=== PATIENT | female | born 1985 | race Caucasian/White ===

== ENCOUNTER 2017-03-03 14:15 | Inpatient (IN) | payer MEDICAID ==
[~2017-03-03] VITALS: Ht 160 cm; Wt 90.5 kg
[2017-03-03] MEDS ORDERED: URSO300C3 PO (14:47)
[2017-03-03] MEDS ORDERED: PRENAT PO (14:47)
[2017-03-03 14:48] VITALS: Ht 160 cm; Wt 90.5 kg
[2017-03-03 14:49] VITALS: BP 142/76; PULSE 59
[2017-03-03 15:29] LABS: ADD SCAN DIFF NO
[2017-03-03 15:32] LABS: BASOPHILS % 0.3 % (0.0-2.0); EOSINOPHILS % 0.5 % (0.0-7.0); HEMATOCRIT 33.6 % (37.0-47.0); HEMOGLOBIN 11.3 g/dl (12.0-16.0); LYMPHOCYTES # 1.9 10^3/ul (0.8-2.9); LYMPHOCYTES % 29.6 % (15.0-51.0); MEAN CORPUSCULAR HEMOGLOBIN 28.7 pg (29.0-33.0); MEAN CORPUSCULAR HGB CONC 33.6 g/dl (32.0-37.0); MEAN CORPUSCULAR VOLUME 85.3 fl (82.0-101.0); MEAN PLATELET VOLUME 12.6 fl (7.4-10.4); MONOCYTE # 0.4 10^3/ul (0.3-0.9); MONOCYTES % 6.6 % (0.0-11.0); NEUTROPHIL # 4.1 10^3/ul (1.6-7.5); NEUTROPHILS % 62.5 % (39.0-77.0); PLATELET COUNT 188 10^3/UL (140-415); RED BLOOD COUNT 3.94 10^6/ul (4.20-5.40); RED CELL DISTRIBUTION WIDTH 13.2 % (11.5-14.5); WHITE BLOOD COUNT 6.5 10^3/ul (4.8-10.8)
--- NOTE | 2017-03-03 15:39 | RADRPT ---
PROCEDURE: US OB biophysical profile. CLINICAL INDICATION: evaluation TECHNIQUE: Multiple sonographic images of the pelvis were obtained. The images were reviewed on a PACS workstation. COMPARISON: No prior studies are available for comparison. FINDINGS: There is a single viable intrauterine gestation. Cardiac activity is present with 154 beats per min hernandez. There is a vertex presentation. The placenta is anterior. There is no evidence of placental abruption. There is a normal amount of amniotic fluid with an JOHN = 15.4 cm. Biophysical profile: movement 2/2 tone 2/2. breathing 2/2 JOHN 2/2 Total 06/30 RPTAT: AA . IMPRESSION: Normal biophysical profile. Normal JOHN. Physician Corry Date Time Electronically viewed and signed by Physician Corry on 03/03/2017 15:39 RA/
[2017-03-03 15:41] LABS: INR 0.9; PROTIME 12.1 Sec (12.2-14.2); PT RATIO 0.9
[2017-03-03 15:42] LABS: PARTIAL THROMBOPLASTIN TIME 25.2 Sec (25.0-35.0)
[2017-03-03 15:43] LABS: ADD UMIC YES; URINE BILIRUBIN (Dip) NEGATIVE (NEGATIVE); URINE BLOOD (Dip) NEGATIVE (NEGATIVE); URINE COLOR LT. YELLOW (YELLOW); URINE GLUCOSE (Dip) NEGATIVE (NEGATIVE); URINE KETONES (Dip) NEGATIVE (NEGATIVE); URINE LEUKOCYTE ESTERASE (Dip) 2+ (NEGATIVE); URINE NITRITE (Dip) NEGATIVE (NEGATIVE); URINE TOTAL PROTEIN (Dip) NEGATIVE (NEGATIVE); URINE UROBILINOGEN (Dip) 0.2 E.U./dL (0.1-1.0)
[2017-03-03 15:43] LABS: ALBUMIN 3.1 g/dl (3.3-4.9); ALBUMIN/GLOBULIN RATIO 0.86; BILIRUBIN,INDIRECT 0.4 mg/dl (0-1.1); BILIRUBIN,TOTAL 0.4 mg/dl (0.2-1.3); CALCIUM 8.9 mg/dl (8.4-10.2); CREATININE 0.82 mg/dl (0.44-1.00); POTASSIUM 3.8 mmol/L (3.5-5.1); TOTAL PROTEIN 6.7 g/dl (6.1-8.1); URIC ACID 7.6 mg/dl (3.1-7.9)
[2017-03-03 16:16] LABS: SQUAMOUS EPITHELIAL CELL,UR MODERATE; URINE RBCS 0-2 /HPF (0)
[2017-03-03 16:17] LABS: BACTERIA,URINE RARE
--- NOTE | 2017-03-03 17:52 | HP ---
Date/Time of Note Date/Time of Note DATE: 03/03/17 TIME: 17:36 OB - History Hx of Present Free Text/Dictation March 03, 2017 OB triage consult and history and physical for admission This patient is a 31 years old 2 para 1 with EDC of April 11, 2017 which makes her 34 weeks and 3 days. She was sent to the triage area due to elevated blood pressure as well as Cholestasis of as well as gestational diabetes mellitus diet- controlled . This patient had the pruritus and evidences of a cholestasis of she was placed on Actigall 300 mg 3 times a day last week and she is currently taking her Ursodiol 300 mg 3 times daily but she did not take it since yesterday . On reviewing her vital sign her blood pressure was 142/76 an hour later was 138/ 87 Pulse rate 59 respiration 18 and temperature 98.3 This patient also had gestational diabetes diet-controlled as well as slightly elevated blood pressure. On physical examination she is a well-developed well-nourished lady who is complaining of itching of the abdomen . On physical exam her ear nose throat appear to be normal neck is normal no neck vein distention no thyromegaly no lymph node enlargement anywhere her body Her chest is clear to auscultation her precaution no rales. Heart normal sinus rhythm no murmur. Breasts are soft free of masses. Abdomen is soft she has occasional contractions. Baby appears to be in vertex presentation heart tone is normal at this time as I mentioned with fairly good variability no acceleration. Knee-jerk reflex is normal Pelvic exam at this time was not performed On her lab studies her liver enzyme was slightly elevated, her urinalysis showed 2+ leukocyte esterase with WBC of 5-10. She had some degree of anemia hemoglobin 11.3 hematocrit 33.6 platelet count [id number].. Her PT PTT and INR were normal fibrinogen obviously somewhat elevated 647 mg/dL . On ultrasound study today the report is a single viable intrauterine gestation with 155 bpm heart rate vertex presentation placenta anterior no evidence of placental abruption JOHN 84 this 15.4 cm biophysical profile of 06/30 Due to cholestasis of , gestational diabetes, elevated blood pressure her case was discussed with Dr. Michael who agreed to admit her in the hospital and review her other test tomorrow Abnormal Ultrasound Findings: Laboratory Tests Test 03/03/17 14:50 03/03/17 15:00 Urine Color LT. YELLOW Urine Clarity CLEAR Urine pH 5.5 Urine Specific [place]mit[place] 1.010 Urine Ketones NEGATIVE Urine Nitrite NEGATIVE Urine Bilirubin NEGATIVE Urine Urobilinogen 0.2 E.U./dL Urine Leukocyte Esterase 2+ Urine Microscopic RBC 0-2/HPF Urine WBC Clumps OCCASIONAL Urine Microscopic WBC 5-10/HPF Urine Squamous Epithelial Cells MODERATE Urine Bacteria RARE Urine Hemoglobin NEGATIVE Urine Glucose NEGATIVE% Urine Total Protein NEGATIVE White Blood Count 6.510^3/ul Red Blood Count 3.9410^6/ul Hemoglobin 11.3g/dl Hematocrit 33.6% Mean Corpuscular Volume 85.3fl Mean Corpuscular Hemoglobin 28.7pg Mean Corpuscular Hemoglobin Concent 33.6g/dl Red Cell Distribution Width 13.2% Platelet Count 94807^3/UL Mean Platelet Volume 12.6fl Neutrophils % 62.5% Lymphocytes % 29.6% Monocytes % 6.6% Eosinophils % 0.5% Basophils % 0.3% Nucleated Red Blood Cells % 0.0/100WBC Neutrophils # 4.110^3/ul Lymphocytes # 1.910^3/ul Monocytes # 0.410^3/ul Eosinophils # 0.010^3/ul Basophils # 0.010^3/ul Nucleated Red Blood Cells # 0.010^3/ul Prothrombin Time 12.1Sec Prothrombin Time Ratio 0.9 INR International Normalized Ratio 0.90 Activated Partial Thromboplast Time 25.2Sec Fibrinogen 647.0mg/dl Sodium Level 134mmol/L Potassium Level 3.8mmol/L Chloride Level 107mmol/L Carbon Dioxide Level 22mmol/L Anion Gap 9 Blood Urea Nitrogen 11mg/dl Creatinine 0.82mg/dl Glucose Level 77mg/dl Uric Acid 7.6mg/dl Calcium Level 8.9mg/dl Total Bilirubin 0.4mg/dl Direct Bilirubin 0.00mg/dl Indirect Bilirubin 0.4mg/dl Aspartate Amino Transf (AST/SGOT) 70IU/L Alanine Aminotransferase (ALT/SGPT) 123IU/L Alkaline Phosphatase 214IU/L Total Protein 6.7g/dl Albumin 3.1g/dl Globulin 3.60g/dl Albumin/Globulin Ratio 0.86 Other Concerns: Dr. Mckeon was informed about the result lab test on her condition Impression: intrauterine of 34 weeks and 3 days cholestasis of gestational diabetes mellitus diet-controlled and elevated blood pressure we will admit her in the hospital and start cortisone treatment watch of contraction and make a decision for induction delivery tomorrow end of dictation thank you Laboratory Tests Test 03/03/17 14:50 03/03/17 15:00 Urine Color LT. YELLOW Urine Clarity CLEAR Urine pH 5.5 Urine Specific [place]mit[place] 1.010 Urine Ketones NEGATIVE Urine Nitrite NEGATIVE Urine Bilirubin NEGATIVE Urine Urobilinogen 0.2 E.U./dL Urine Leukocyte Esterase 2+ Urine Microscopic RBC 0-2/HPF Urine WBC Clumps OCCASIONAL Urine Microscopic WBC 5-10/HPF Urine Squamous Epithelial Cells MODERATE Urine Bacteria RARE Urine Hemoglobin NEGATIVE Urine Glucose NEGATIVE% Urine Total Protein NEGATIVE White Blood Count 6.510^3/ul Red Blood Count 3.9410^6/ul Hemoglobin 11.3g/dl Hematocrit 33.6% Mean Corpuscular Volume 85.3fl Mean Corpuscular Hemoglobin 28.7pg Mean Corpuscular Hemoglobin Concent 33.6g/dl Red Cell Distribution Width 13.2% Platelet Count 60114^3/UL Mean Platelet Volume 12.6fl Neutrophils % 62.5% Lymphocytes % 29.6% Monocytes % 6.6% Eosinophils % 0.5% Basophils % 0.3% Nucleated Red Blood Cells % 0.0/100WBC Neutrophils # 4.110^3/ul Lymphocytes # 1.910^3/ul Monocytes # 0.410^3/ul Eosinophils # 0.010^3/ul Basophils # 0.010^3/ul Nucleated Red Blood Cells # 0.010^3/ul Prothrombin Time 12.1Sec Prothrombin Time Ratio 0.9 INR International Normalized Ratio 0.90 Activated Partial Thromboplast Time 25.2Sec Fibrinogen 647.0mg/dl Sodium Level 134mmol/L Potassium Level 3.8mmol/L Chloride Level 107mmol/L Carbon Dioxide Level 22mmol/L Anion Gap 9 Blood Urea Nitrogen 11mg/dl Creatinine 0.82mg/dl Glucose Level 77mg/dl Uric Acid 7.6mg/dl Calcium Level 8.9mg/dl Total Bilirubin 0.4mg/dl Direct Bilirubin 0.00mg/dl Indirect Bilirubin 0.4mg/dl Aspartate Amino Transf (AST/SGOT) 70IU/L Alanine Aminotransferase (ALT/SGPT) 123IU/L Alkaline Phosphatase 214IU/L Total Protein 6.7g/dl Albumin 3.1g/dl Globulin 3.60g/dl Albumin/Globulin Ratio 0.86 Past Family/Social History * Past Medical, Surgical, Family and Obstetric Histories reviewed from chart. OB Admission Exam Vital Signs Vital Signs Vital Signs Date Time Temp Pulse Resp B/P Pulse Ox O2 Delivery O2 Flow Rate FiO2 03/03/17 14:49 98.3 59 142/76 Last 72 hours Lab Results CBC & BMP 03/03/17 15:00 Liver Function Test 03/03/17 15:00 Alanine Aminotransferase (ALT/SGPT) 123 H Albumin 3.1 L Alkaline Phosphatase 214 H Aspartate Amino Transf (AST/SGOT) 70 H Direct Bilirubin 0.00 Total Protein 6.7 KELLEY HILL MD Mar 03, 2017 17:49 KELLEY HILL MD Mar 03, 2017 17:49
[2017-03-03] MEDS: BETAMET NA PHOS/AC(6 MG/ML) 5ML INJ IM SCH (18:20)
[2017-03-03] MEDS: URSODIOL 300 MG CAP PO SCH (20:56)
[2017-03-04 07:43] LABS: ADD SCAN DIFF NO
[2017-03-04 07:50] LABS: BASOPHILS % 0.1 % (0.0-2.0); HEMATOCRIT 37.4 % (37.0-47.0); HEMOGLOBIN 12.1 g/dl (12.0-16.0); LYMPHOCYTES # 1.6 10^3/ul (0.8-2.9); LYMPHOCYTES % 21.1 % (15.0-51.0); MEAN CORPUSCULAR HEMOGLOBIN 27.8 pg (29.0-33.0); MEAN CORPUSCULAR HGB CONC 32.4 g/dl (32.0-37.0); MEAN CORPUSCULAR VOLUME 85.8 fl (82.0-101.0); MONOCYTE # 0.2 10^3/ul (0.3-0.9); MONOCYTES % 2.9 % (0.0-11.0); NEUTROPHIL # 5.6 10^3/ul (1.6-7.5); NEUTROPHILS % 75.4 % (39.0-77.0); PLATELET COUNT 203 10^3/UL (140-415); RED BLOOD COUNT 4.36 10^6/ul (4.20-5.40); RED CELL DISTRIBUTION WIDTH 13.4 % (11.5-14.5); WHITE BLOOD COUNT 7.5 10^3/ul (4.8-10.8)
[2017-03-04 08:08] LABS: POTASSIUM 3.7 mmol/L (3.5-5.1)
[2017-03-04 08:10] LABS: ALBUMIN/GLOBULIN RATIO 0.81; BILIRUBIN,INDIRECT 0.4 mg/dl (0-1.1); BILIRUBIN,TOTAL 0.4 mg/dl (0.2-1.3); CREATININE 0.81 mg/dl (0.44-1.00); TOTAL PROTEIN 6.7 g/dl (6.1-8.1)
[2017-03-04] MEDS: URSODIOL 300 MG CAP PO SCH ×3 (09:32→21:00)
[2017-03-04] MEDS: BETAMET NA PHOS/AC(6 MG/ML) 5ML INJ IM SCH (10:18)
--- NOTE | 2017-03-04 10:31 | RADRPT ---
PROCEDURE: Limited obstetric ultrasound CLINICAL INDICATION: Pain TECHNIQUE: Multiple transverse and longitudinal grayscale images of the pelvis were obtained burrows sabdominally and transvaginally.. COMPARISON: 03/03/2017 FINDINGS: The cervix is closed with a length of 4.2 cm. There is a single viable intrauterine gestation. Cardiac activity is present with 137 beats per min hernandez. There is a vertex presentation. The placenta is anterior. There is no evidence for an abruption or placenta previa. There are small placental lakes again noted. RPTAT: AA IMPRESSION: Cervix length measures 4.2 cm. .Kuldeep Villalobos MD, MD Date Time Electronically viewed and signed by .Kuldeep Villalobos MD, on 03/04/2017 10:31 .S/
[2017-03-04] MEDS: LACTATED RINGER'S 1,000 ML IV SCH ×2 (11:59→19:36)
--- NOTE | 2017-03-04 13:16 | CONS ---
DATE OF ADMISSION: 03/03/2017 DATE OF CONSULTATION: 03/04/2017 TYPE OF CONSULTATION: HISTORY OF PRESENT ILLNESS: I was requested to do a consultation on Luis Miguel by the freezer laboratory technician, Dr. Mckeon. A 31-year-old mom, 2, para 1 is admitted to unit for labor, cholestasis and maternal gestational diabetes. Gestational age 34-2/7 weeks. EDC is 2016. Membranes intact upon admission. Mom is O Rh positive, RPR nonreactive, hepatitis B surface antigen negative, HIV negative and GBS unknown. I have spoken to the mother and explained to her about prematurity at 34 to 35 weeks' gestational age, low weight, physiologic immaturity with maternal gestational diabetes, risk for sepsis and antibiotic therapy, risk for hyperbilirubinemia and phototherapy, risk for feeding problems with necrotizing enterocolitis and gastroesophageal reflux, risk for apnea of prematurity and general treatment plan and general procedures done in NICU. I have explained to the mother about long-term problems with neurodevelopmental delay and hearing problems in view of prematurity. I also explained to her about the survival over 99% unless the baby has congenital anomalies that we have not seen on ultrasound. Mom seems to understand the risks with prematurity and need to observe the baby in NICU and has appropriate questions that were answered. I thank you very much for allowing me to take part in the care of this patient. We will attend the delivery and follow the baby as needed. Dictated By: RICKY DE LA TORRE/GISELE Conf#: [id number] DID#: [id number] JAYANT
--- NOTE | 2017-03-04 14:24 | PN ---
Date/Time of Note Date/Time of Note DATE: 03/04/17 TIME: 14:17 OB Subjective Subjective Subjective Patient comfortable in bed. She feels her [address] contractions. Denies any leaking of fluid, vaginal bleeding or decreased movement. Reports to still have itching of her body. She points to the large ecchymotic area on the upper side of the left lower extremity as well as on the right lower extremity. Patient reports this happened spontaneously. She denies any trauma. OB Objective Objective Objective General appearance: Alert and oriented 4 patient does not appear to be in any acute distress. Abdomen: Soft, gravid, fundal height consistent with gestational age. Extremities: There is ecchymotic area covering about 7-8 cm area in the left lower extremity and the upper part as well as right lower extremity in the mid and lower. No calf tenderness, no click no edema Fundal height consistent with gestational age NST: Category 1, reactive Contractions every 4-5 minutes seen on the monitor Hematology - 72 Hrs Test 03/03/17 15:00 03/04/17 06:15 White Blood Count 6.510^3/ul (4.8-10.8) 7.510^3/ul (4.8-10.8) Red Blood Count 3.9410^6/ul (4.20-5.40) L 4.3610^6/ul (4.20-5.40) Hemoglobin 11.3g/dl (12.0-16.0) L 12.1g/dl (12.0-16.0) Hematocrit 33.6% (37.0-47.0) L 37.4% (37.0-47.0) Mean Corpuscular Volume 85.3fl (82.0-101.0) 85.8fl (82.0-101.0) Mean Corpuscular Hemoglobin 28.7pg (29.0-33.0) L 27.8pg (29.0-33.0) L Mean Corpuscular Hemoglobin Concent 33.6g/dl (32.0-37.0) 32.4g/dl (32.0-37.0) Red Cell Distribution Width 13.2% (11.5-14.5) 13.4% (11.5-14.5) Platelet Count 08967^3/UL (140-415) 68836^3/UL (140-415) Mean Platelet Volume 12.6fl (7.4-10.4) H 13.0fl (7.4-10.4) H Neutrophils % 62.5% (39.0-77.0) 75.4% (39.0-77.0) Lymphocytes % 29.6% (15.0-51.0) 21.1% (15.0-51.0) Monocytes % 6.6% (0.0-11.0) 2.9% (0.0-11.0) Eosinophils % 0.5% (0.0-7.0) 0.0% (0.0-7.0) Basophils % 0.3% (0.0-2.0) 0.1% (0.0-2.0) Nucleated Red Blood Cells % 0.0/100WBC (0.0-0.0) 0.0/100WBC (0.0-0.0) Neutrophils # 4.110^3/ul (1.6-7.5) 5.610^3/ul (1.6-7.5) Lymphocytes # 1.910^3/ul (0.8-2.9) 1.610^3/ul (0.8-2.9) Monocytes # 0.410^3/ul (0.3-0.9) 0.210^3/ul (0.3-0.9) L Eosinophils # 0.010^3/ul (0.0-0.5) 0.010^3/ul (0.0-0.5) Basophils # 0.010^3/ul (0.0-0.1) 0.010^3/ul (0.0-0.1) Nucleated Red Blood Cells # 0.010^3/ul (0.0-0.0) 0.010^3/ul (0.0-0.0) Chemistry Test 03/03/17 15:00 03/03/17 20:46 03/04/17 06:15 03/04/17 07:46 Sodium Level 134mmol/L (135-144) L 135mmol/L (135-144) Potassium Level 3.8mmol/L (3.5-5.1) 3.7mmol/L (3.5-5.1) Chloride Level 107mmol/L (97-110) 105mmol/L (97-110) Carbon Dioxide Level 22mmol/L (21-31) 18mmol/L (21-31) L Anion Gap 9 (8-16) 16 (8-16) # Blood Urea Nitrogen 11mg/dl (7-20) 10mg/dl (7-20) Creatinine 0.82mg/dl (0.44-1.00) 0.81mg/dl (0.44-1.00) Glucose Level 77mg/dl (70-220) 103mg/dl (70-220) Uric Acid 7.6mg/dl (3.1-7.9) Calcium Level 8.9mg/dl (8.4-10.2) 9.0mg/dl (8.4-10.2) Total Bilirubin 0.4mg/dl (0.2-1.3) 0.4mg/dl (0.2-1.3) Direct Bilirubin 0.00mg/dl (0.00-0.20) 0.00mg/dl (0.00-0.20) Indirect Bilirubin 0.4mg/dl (0-1.1) 0.4mg/dl (0-1.1) Aspartate Amino Transf (AST/SGOT) 70IU/L (15-46) H 87IU/L (15-46) H Alanine Aminotransferase (ALT/SGPT) 123IU/L (13-69) H 133IU/L (13-69) H Alkaline Phosphatase 214IU/L (42-121) H 198IU/L (42-121) H Total Protein 6.7g/dl (6.1-8.1) 6.7g/dl (6.1-8.1) Albumin 3.1g/dl (3.3-4.9) L 3.0g/dl (3.3-4.9) L Globulin 3.60g/dl (1.3-3.2) H 3.70g/dl (1.3-3.2) H Albumin/Globulin Ratio 0.86 0.81 Bedside Glucose 115mg/dL (70-220) 93mg/dL (70-220) Test 03/04/17 12:11 Bedside Glucose 101mg/dL (70-220) OB Assessment/Plan Other Assessment: Hospital day #2 Admitted for cholestasis of . Patient with history of cholestasis of in prior at term. Status post induction at 40 weeks. Current she presented with itching of the body as well as palms and soles. She had elevated bile acids that confirms cholestasis. Status post [facility] consultation with [facility] perinatology . she was a started on ursodiol 3 times daily. LFTs initially decreased now is increasing slightly NST reactive and category 1 Status post 1 dose of the steroid. Discussed with Dr. Welsh the perinatologist, recommended accelerated doses of steroid she does not recommend at this time tocolysis. contractions, cervical length more than 4 cm FFN negative, no evidence of labor Consider expectant management and fluid hydration GDM,A1. Possibly pre-gestational diabetes based on level of 1 hour glucose test currently blood sugar. Well controlled Gestational hypertension , well controlled without meds Elevated LFTs, related to cholestasis of . No evidence of preeclampsia I have discussed and reviewed this case with Dr. Welsh team. She recommended continue expectant management with repeat LFTs tomorrow. If LFTs increased twofold or more consider delivery otherwise expectant management with close follow-up with continuous monitoring in-house recommended Recommended accelerated steroid which already started Management of diabetes with diet with follow-up of blood sugar fasting and postprandial Ecchymosis, spontaneously on both lower extremities. Platelets are normal/ cannot rule out vasculitis Hematology consultation placed JAMAICA QUINTANA MD Mar 04, 2017 14:24
[2017-03-04 16:30] LABS: INR 0.88; PROTIME 11.9 Sec (12.2-14.2); PT RATIO 0.9
[2017-03-04 16:31] LABS: PARTIAL THROMBOPLASTIN TIME 23.5 Sec (25.0-35.0)
--- NOTE | 2017-03-04 22:19 | CONS ---
Date/Time of Note Date/Time of Note DATE: 03/04/17 TIME: 22:05 Assessment/Plan Assessment/Plan Chief Complaint/Hosp Course The patient is a 31 year old female who is 34 weeks , who was admitted for cholestasis of who was noted to have bilateral lower extremity ecchymoses of unclear etiology - Platelet count, INR/PT, PTT and fibrinogen are within normal limits - Will repeat CBC, PT/INR/PTT, fibrinogen, as well as check platelet function assay, factor XIII level and von willebrand factor antigen and ristocetin cofactor assay Will continue to follow Problems: Consultation Date/Type/Reason Admit Date/Time Mar 03, 2017 at 17:15 Date of Consultation: Mar 04, 2017 Type of Consultation: Hematology Reason for Consultation Bilateral lower extremity ecchymoses Hx of Present Illness The patient is a 31 year old female who is 34 weeks , who was admitted for cholestasis of . Patient with history of cholestasis of in prior at term status post induction at 40 weeks. During this , she presented with itching of the body as well as palms and soles. She had elevated bile acids that confirms cholestasis. She was a started on ursodiol 3 times daily. Elevated LFTs are thought related to cholestasis of . No evidence of preeclampsia The patient states that she started developing small bruises on Thursday and on Thursday she walked all day for her baby shower. On Thursday she started developing large bruises on both of her legs. She denies prior history of bruising or bleeding except epistaxis. She did not have prior history of bruising or bleeding with her prior . No surgeries in the past except a C section without excess bleeding. She does have a history of heavy periods but no melena or hematochezia. She states that her mother had vaginal bleeding that would last almost the entire month before subsiding and then starting again and that she had some sort of surgery that relieved the problem. She does not have any other family history of bleeding. No joint bleeding. She has not taking ibuprofen while . She does not take any meds or supplements. No trauma. Past Medical History None Family History Significant Family History: other (See HPI) Social History Alcohol Use: none Smoking Status: Never smoker Exam/Review of Systems Vital Signs Vitals Vital Signs Date Time Temp Pulse Resp B/P Pulse Ox O2 Delivery O2 Flow Rate FiO2 03/03/17 14:49 98.3 59 142/76 Exam Constitutional: alert, oriented Psych: no complaints Head: atraumatic, normocephalic Eyes: nl conjunctiva Neck: non-tender, supple Respiratory: clear to auscultation Cardiovascular: regular rate and rhythm Gastrointestinal: non-tender, other (34 weeks ), soft Musculoskeletal: other (bilateral lower extremity ecchymoses 6-7 cm in size on the left x 2 and scattered ecchymoses on right lateral thigh) Results Result Diagram: 03/04/17 0615 03/04/17 0615 Results 24 hrs Laboratory Tests Test 03/04/17 06:15 03/04/17 07:46 03/04/17 10:01 03/04/17 12:11 White Blood Count 7.5 Red Blood Count 4.36 Hemoglobin 12.1 Hematocrit 37.4 Mean Corpuscular Volume 85.8 Mean Corpuscular Hemoglobin 27.8 L Mean Corpuscular Hemoglobin Concent 32.4 Red Cell Distribution Width 13.4 Platelet Count 203 Mean Platelet Volume 13.0 H Neutrophils % 75.4 Lymphocytes % 21.1 Monocytes % 2.9 Eosinophils % 0.0 Basophils % 0.1 Nucleated Red Blood Cells % 0.0 Neutrophils # 5.6 Lymphocytes # 1.6 Monocytes # 0.2 L Eosinophils # 0.0 Basophils # 0.0 Nucleated Red Blood Cells # 0.0 Sodium Level 135 Potassium Level 3.7 Chloride Level 105 Carbon Dioxide Level 18 L Anion Gap 16 # Blood Urea Nitrogen 10 Creatinine 0.81 Glucose Level 103 Calcium Level 9.0 Total Bilirubin 0.4 Direct Bilirubin 0.00 Indirect Bilirubin 0.4 Aspartate Amino Transf (AST/SGOT) 87 H Alanine Aminotransferase (ALT/SGPT) 133 H Alkaline Phosphatase 198 H Total Protein 6.7 Albumin 3.0 L Globulin 3.70 H Albumin/Globulin Ratio 0.81 Bedside Glucose 93 101 Fibronectin NEGATIVE Test 03/04/17 15:31 03/04/17 16:05 03/04/17 20:02 Bedside Glucose 140 180 Prothrombin Time 11.9 L Prothrombin Time Ratio 0.9 INR International Normalized Ratio 0.88 Activated Partial Thromboplast Time 23.5 L Medications Medications Current Medications Ursodiol 300 mg 300 mg TID PO Last administered on 03/04/17t 21:00; Admin Dose 300 MG; Start 03/03/17 at 21:00 Lactated Ringer's (Lr) 1,000 ml @ 125 mls/hr Q8H IV Last administered on t 19:36; Admin Dose 125 MLS/HR; Start 03/04/17 at 10:00 CATHY BURGOS MD Mar 04, 2017 22:16
[2017-03-05] MEDS: LACTATED RINGER'S 1,000 ML IV SCH ×2 (03:48→11:30)
[2017-03-05 07:29] LABS: ADD SCAN DIFF NO
[2017-03-05 07:31] LABS: INR 0.87; POTASSIUM 3.5 mmol/L (3.5-5.1); PROTIME 11.8 Sec (12.2-14.2); PT RATIO 0.9
[2017-03-05 07:33] LABS: CREATININE 0.8 mg/dl (0.44-1.00)
[2017-03-05 07:34] LABS: CALCIUM 8.4 mg/dl (8.4-10.2)
[2017-03-05 07:35] LABS: BASOPHILS % 0.1 % (0.0-2.0); HEMOGLOBIN 11.3 g/dl (12.0-16.0); MEAN CORPUSCULAR HEMOGLOBIN 28.6 pg (29.0-33.0); MEAN CORPUSCULAR HGB CONC 33.2 g/dl (32.0-37.0); MEAN CORPUSCULAR VOLUME 86.1 fl (82.0-101.0); MEAN PLATELET VOLUME 12.9 fl (7.4-10.4); MONOCYTE # 0.6 10^3/ul (0.3-0.9); MONOCYTES % 6.3 % (0.0-11.0); NEUTROPHIL # 6.7 10^3/ul (1.6-7.5); NEUTROPHILS % 71.7 % (39.0-77.0); PLATELET COUNT 207 10^3/UL (140-415); RED BLOOD COUNT 3.95 10^6/ul (4.20-5.40); RED CELL DISTRIBUTION WIDTH 13.4 % (11.5-14.5); WHITE BLOOD COUNT 9.3 10^3/ul (4.8-10.8)
[2017-03-05] MEDS: URSODIOL 300 MG CAP PO SCH ×2 (08:49→12:46)
[2017-03-05 10:35] LABS: ALBUMIN 2.7 g/dl (3.3-4.9)
[2017-03-05 10:38] LABS: BILIRUBIN,INDIRECT 0.3 mg/dl (0-1.1); BILIRUBIN,TOTAL 0.3 mg/dl (0.2-1.3); TOTAL PROTEIN 6.1 g/dl (6.1-8.1)
--- NOTE | 2017-03-05 11:18 | QN ---
Documentation Comment Pt. w/o complaints tracing category 1 vss AST 152 (INCREASED from 70) ALT 220 (INCREASED FROM 123) ALK 182 (DECREAED FROM 214) Will discuss with perinatologist regarding plan of action. A/P Cholecystis of with worsening LFTs. LUIS WHITE MD Mar 05, 2017 11:18
--- NOTE | 2017-03-05 14:12 | CONS ---
Date/Time of Note Date/Time of Note DATE: 03/05/17 TIME: 14:11 Assessment/Plan Assessment/Plan Chief Complaint/Hosp Course The patient is a 31 year old female who is 34 weeks , who was admitted for cholestasis of who was noted to have bilateral lower extremity ecchymoses of unclear etiology - Platelet count, INR/PT, PTT and fibrinogen are within normal limits as are the repeat levels - Platelet function assay normal at 126 (reference range 51-198) - Pending factor XIII level and von willebrand factor antigen and ristocetin cofactor assay - There was a concern that this may represent vasculitis, will check RF ( positive in cryoglobulinemia), hep panel, HIV Will continue to follow Problems: Consultation Date/Type/Reason Admit Date/Time Mar 03, 2017 at 17:15 Initial Consult Date 03/04/17 Type of Consultation: Hematology 24 HR Interval Summary Free Text/Dictation Patient not able to be seen as patient in labor and delivery. Exam/Review of Systems Vital Signs Vitals Vital Signs Date Time Temp Pulse Resp B/P Pulse Ox O2 Delivery O2 Flow Rate FiO2 03/03/17 14:49 98.3 59 142/76 Intake and Output 03/04/17 03/04/17 03/05/17 15:00 23:00 07:00 Intake Total 375 ml 875 ml 1125 ml Output Total 200 ml 2600 ml 1000 ml Balance 175 ml -1725 ml 125 ml Results Result Diagram: 03/05/17 0620 03/05/17 0620 Results 24 hrs Laboratory Tests Test 03/04/17 15:31 03/04/17 16:05 03/04/17 20:02 03/05/17 06:20 Bedside Glucose 140 180 Prothrombin Time 11.9 L 11.8 L Prothrombin Time Ratio 0.9 0.9 INR International Normalized Ratio 0.88 0.87 Activated Partial Thromboplast Time 23.5 L 23.0 L White Blood Count 9.3 # Red Blood Count 3.95 L Hemoglobin 11.3 L Hematocrit 34.0 L Mean Corpuscular Volume 86.1 Mean Corpuscular Hemoglobin 28.6 L Mean Corpuscular Hemoglobin Concent 33.2 Red Cell Distribution Width 13.4 Platelet Count 207 Mean Platelet Volume 12.9 H Neutrophils % 71.7 Lymphocytes % 21.0 Monocytes % 6.3 Eosinophils % 0.0 Basophils % 0.1 Nucleated Red Blood Cells % 0.0 Neutrophils # 6.7 Lymphocytes # 2.0 Monocytes # 0.6 Eosinophils # 0.0 Basophils # 0.0 Nucleated Red Blood Cells # 0.0 Fibrinogen 502.0 #H Platelet Func Collagen/Epinephrine 126 Platelet Function Collagen/ADP Sodium Level 137 Potassium Level 3.5 Chloride Level 106 Carbon Dioxide Level 22 Anion Gap 13 Blood Urea Nitrogen 12 Creatinine 0.80 Glucose Level 124 Calcium Level 8.4 Total Bilirubin 0.3 Direct Bilirubin 0.00 Indirect Bilirubin 0.3 Aspartate Amino Transf (AST/SGOT) 152 H Alanine Aminotransferase (ALT/SGPT) 220 H Alkaline Phosphatase 182 H Total Protein 6.1 Albumin 2.7 L Test 03/05/17 08:43 03/05/17 10:51 Bedside Glucose 106 133 Medications Medications Current Medications Ursodiol 300 mg 300 mg TID PO Last administered on 03/05/17 12:46; Admin Dose 300 MG; Start 03/03/17 at 21:00 Lactated Ringer's (Lr) 1,000 ml @ 125 mls/hr Q8H IV Last administered on 11:30; Admin Dose 125 MLS/HR; Start 03/04/17 at 10:00 CATHY BURGOS MD Mar 05, 2017 14:12 Ursodiol 300 mg 300 mg TID PO Last administered on 03/05/17 12:46; Admin Dose 300 MG; Start 03/03/17 at 21:00 Lactated Ringer's (Lr) 1,000 ml @ 125 mls/hr Q8H IV Last administered on 11:30; Admin Dose 125 MLS/HR; Start 03/04/17 at 10:00 CATHY BURGOS MD Mar 05, 2017 14:12
[2017-03-05] MEDS ORDERED: LACTATED RINGER'S 1,000 ML IV SCH ×2 (16:21→22:10)
[2017-03-05] MEDS ORDERED: CARBOPROST 250 MCG INJ IM PRN ×2 (16:30→22:30)
[2017-03-05] MEDS ORDERED: OXYTOCIN 30 UNITS/LR 500 ML IV PRN ×2 (16:30→22:30)
[2017-03-05] MEDS ORDERED: CEFAZOLIN 2 GM/50 ML (PMX) 50 ML IV SCH (16:30)
[2017-03-05] MEDS ORDERED: METOCLOPRAMIDE 10 MG INJ IM ONE (16:30)
[2017-03-05] MEDS ORDERED: METHYLERGONOVINE 0.2 MG INJ IM PRN ×2 (16:30→22:30)
[2017-03-05] MEDS ORDERED: OXYTOCIN 30 UNITS/LR 500 ML IV SCH (16:30)
[2017-03-05] MEDS ORDERED: CITRIC ACID/NA CITRATE 30 ML CUP PO ONE ×2 (16:30→17:00)
[2017-03-05] MEDS ORDERED: MISOPROSTOL 200 MCG TAB PR PRN ×2 (16:30→22:30)
[2017-03-05] MEDS ORDERED: LACTATED RINGER'S 1,000 ML IV ONE (16:47)
[2017-03-05] MEDS ORDERED: FAMOTIDINE 20 MG INJ IV ONE (17:00)
[2017-03-05] MEDS ORDERED: METOCLOPRAMIDE 10 MG INJ IV ONE (17:00)
[2017-03-05] MEDS ORDERED: FENTAnyl 50 MCG/ML VIAL ONE (17:11)
[2017-03-05] MEDS ORDERED: morphine SULFATE/PF (10 MG/10 ML) INJ ONE (17:12)
[2017-03-05] MEDS ORDERED: ONDANSETRON 4 MG INJ ONE (17:27)
[2017-03-05] MEDS ORDERED: NALOXONE (0.4 MG/ML) INJ IV PRN (17:30)
[2017-03-05] MEDS ORDERED: FENTAnyl 50 MCG/ML VIAL IV PRN (17:30)
[2017-03-05] MEDS ORDERED: HYDROmorphONE 1 MG/ML SYG IV PRN ×2 (17:30)
[2017-03-05] MEDS ORDERED: MEPERIDINE 25 MG INJ IV PRN (17:30)
[2017-03-05] MEDS ORDERED: KETOROLAC 30 MG INJ IV PRN ×2 (17:30)
[2017-03-05] MEDS ORDERED: NALBUPHINE HCL (10 MG/1 ML) INJ IV PRN (17:30)
[2017-03-05] MEDS ORDERED: HYDROmorphONE (0.2 MG/ML) 10ML SYG IV PRN (17:30)
[2017-03-05] MEDS ORDERED: ONDANSETRON 4 MG INJ IV PRN ×2 (17:30)
[2017-03-05] MEDS ORDERED: PROCHLORPERAZINE 10 MG INJ IV PRN ×2 (17:30)
[2017-03-05] MEDS ORDERED: ZOLPIDEM 5 MG TAB PO PRN (17:30)
[2017-03-05] MEDS ORDERED: DIPHENHYDRAMINE 50 MG INJ IV PRN ×2 (17:30)
--- NOTE | 2017-03-05 17:32 | OPR ---
Operative Report Planned Procedure Free Text/Dictation 34 WEEKS W/ CHOLECYSTITIS OF . WORSENING OF LFTS. SPOKE WITH DR. METZGER AND RECOMMENDED DELIVERY. PT. FOR REPEAT C/S Procedure date Mar 05, 2017 Performed by: LUIS WHITE MD Assisting provider: KELLEY HILL MD Anesthesia Type: spinal Procedure Description Under satisfactory spinal anesthesia, the patient was prepped and draped and placed in a supine position, tilted to the left. Pfannenstiel incision was made , carried through the subcutaneous tissue. Bleeders brought under control with electrocautery. Fascia incised to the length of the incision. Rectus muscles from the fascia, divided midline. Peritoneum exposed, entered through a transverse incision. Exploration of abdomen revealed gravid uterus. Bladder flap was developed. Transverse incision was made in the lower segment of the uterus. Amniotic sac ruptured. clear amniotic fluid noted. [] Nasal oropharyngeal suction was performed. The baby was handed to the team for immediate attention. The placenta was delivered manually intact. Uterine cavity was cleaned with wet sponge and drainage established. Uterus closed in 2 layers using one monocryl in continuous fashion. Peritoneal cavity irrigated with warm saline. Sponge, needle and instrument count reported to be correct. Abdominal peritoneum closed with [] continuously. Rectus muscle approximated with []. Fascia closed with one monocryl[], and skin closed with absorabable juan f. Estimated blood loss 700 mL. Post-Procedure Findings: Live Baby [], Apgars [] and [], weight [], position [], [] presentation []cord. Specimen removed: Yes Complications: None Pt Condition post procedure: stable Disposition: PACU Physician Certification I, the undersigned physician, hereby certify that I have discussed the procedure described in this consent form with this patient (or the patient's legal patient care representative), including: * The risk and benefits of the procedure; * Any adverse reactions that may reasonably be expected to occur; * Any alternative efficacious methods of treatment which may be medically viable ; * The potential problems that may occur during recuperation; * Potential for blood transfusion and associated risks/benefits; and * Any research or economic interest I may have regarding this treatment. I further certify that the patient/legally responsible person was encouraged to ask question and that all questions were answered. LUIS WHITE MD Mar 05, 2017 17:32
[2017-03-05] MEDS ORDERED: OXYTOCIN 30 UNITS/LR 500 ML IV ONE (18:01)
[2017-03-05] MEDS ORDERED: EPHEDrine SULFATE 50 MG/5 ML SYG ONE (18:04)
[2017-03-05] MEDS ORDERED: MAGNESIUM SULFATE 4 GM/100 ML 100 ML IV SCH (20:30)
[2017-03-05] MEDS: MAGNESIUM SULFATE 20 GM/500 ML 500 ML IV SCH (21:10)
[2017-03-05 22:00] VITALS: BP 141/75; PULSE 65; RESP 21
[2017-03-05] MEDS ORDERED: NACL 0.9% 3 ML SYG IV SCH (22:30)
[2017-03-05] MEDS ORDERED: LANOLIN 7 GM TUBE TOP PRN (22:30)
[2017-03-05] MEDS ORDERED: NA PHOSPHATE/BIPHOS 133 ML ENEMA PR PRN (22:30)
[2017-03-05 23:00] VITALS: BP 142/82; PULSE 80; RESP 20
[2017-03-06] VITALS (14 sets, daily range): BP systolic 120–151; BP diastolic 66–85; PULSE 64–98; RESP 16–20
[2017-03-06] MEDS: OXYTOCIN 30 UNITS/LR 500 ML IV SCH ×2 (01:24→18:56)
[2017-03-06] MEDS: MAGNESIUM SULFATE 20 GM/500 ML 500 ML IV SCH (06:10)
[2017-03-06 08:17] LABS: HAAIG REFLEX REFLEX FILED
[2017-03-06 09:47] LABS: HEPATITIS B CORE ANTIBODY NEGATIVE (NEGATIVE)
--- NOTE | 2017-03-06 11:17 | QN ---
Documentation Comment POD#1 is stable afebrile tolerates diet No VB +Flatus Adequate urine No sign of depression ,feels dizzy and sleepy VS stable BP 120/70 Lungs clear Reflexes WNL Mg level 6.3 --->Stop mg --->remove calderon --->ambulation when she is ready --->patient's questions answered RUBEN LANIER M.D. Mar 06, 2017 11:17
[2017-03-06 12:42] LABS: ADD SCAN DIFF NO
[2017-03-06 12:47] LABS: BASOPHILS % 0.2 % (0.0-2.0); EOSINOPHILS % 0.2 % (0.0-7.0); HEMATOCRIT 33.4 % (37.0-47.0); HEMOGLOBIN 11.2 g/dl (12.0-16.0); LYMPHOCYTES # 1.7 10^3/ul (0.8-2.9); MEAN CORPUSCULAR HEMOGLOBIN 28.6 pg (29.0-33.0); MEAN CORPUSCULAR HGB CONC 33.5 g/dl (32.0-37.0); MEAN CORPUSCULAR VOLUME 85.2 fl (82.0-101.0); MEAN PLATELET VOLUME 12.3 fl (7.4-10.4); MONOCYTE # 0.5 10^3/ul (0.3-0.9); MONOCYTES % 4.9 % (0.0-11.0); NEUTROPHIL # 8.5 10^3/ul (1.6-7.5); NEUTROPHILS % 78.1 % (39.0-77.0); PLATELET COUNT 199 10^3/UL (140-415); RED BLOOD COUNT 3.92 10^6/ul (4.20-5.40); RED CELL DISTRIBUTION WIDTH 13.4 % (11.5-14.5); WHITE BLOOD COUNT 10.9 10^3/ul (4.8-10.8)
[2017-03-06] MEDS ORDERED: ACETAMINOPHEN/CODEINE #3 TAB PO PRN (17:20)
--- NOTE | 2017-03-06 19:50 | CONS ---
Date/Time of Note Date/Time of Note DATE: 03/06/17 TIME: 19:49 Assessment/Plan Assessment/Plan Chief Complaint/Hosp Course The patient is a 31 year old female who is 34 weeks , who was admitted for cholestasis of who was noted to have bilateral lower extremity ecchymoses of unclear etiology, now POD 1 status post C section for rising LFTs.. - Platelet count, INR/PT, PTT and fibrinogen are within normal limits as are the repeat levels - Platelet function assay normal at 126 (reference range 51-198) - Pending factor XIII level and von willebrand factor antigen and ristocetin cofactor assay - There was a concern that this may represent vasculitis, will check RF which would be positive in cryoglobulinemia (pending). Hepatitis panel negative. Will continue to follow Problems: Consultation Date/Type/Reason Admit Date/Time Mar 03, 2017 at 17:15 Initial Consult Date 03/04/17 Type of Consultation: Hematology 24 HR Interval Summary Free Text/Dictation Patient states that her bruises are resolving. She had a yesterday and delivered a baby girl. Exam/Review of Systems Vital Signs Vitals Vital Signs Date Time Temp Pulse Resp B/P Pulse Ox O2 Delivery O2 Flow Rate FiO2 03/06/17 16:20 98.4 69 16 127/71 Room Air Intake and Output 03/05/17 03/05/17 03/06/17 15:00 23:00 07:00 Intake Total 812.5 ml 1975 ml 1300 ml Output Total 1600 ml 1000 ml Balance 812.5 ml 375 ml 300 ml Exam Constitutional: alert, oriented Psych: no complaints Head: atraumatic, normocephalic Eyes: nl conjunctiva Neck: non-tender, supple Respiratory: clear to auscultation Cardiovascular: regular rate and rhythm Gastrointestinal: non-tender, dressings c/d/i Musculoskeletal: other (bilateral lower extremity ecchymoses 6-7 cm in size on the left x 2 and scattered ecchymoses on right lateral thigh, resolving) Results Result Diagram: 03/06/17 1234 03/05/17 0620 Results 24 hrs Laboratory Tests Test 03/06/17 00:40 03/06/17 07:44 03/06/17 12:34 Magnesium Level 5.0 H 6.4 *H Hepatitis B Surface Antigen NEGATIVE Hepatitis B Core Total Antibody NEGATIVE Hepatitis C Antibody NEGATIVE HIV (1&2) Antibody NEGATIVE White Blood Count 10.9 H Red Blood Count 3.92 L Hemoglobin 11.2 L Hematocrit 33.4 L Mean Corpuscular Volume 85.2 Mean Corpuscular Hemoglobin 28.6 L Mean Corpuscular Hemoglobin Concent 33.5 Red Cell Distribution Width 13.4 Platelet Count 199 Mean Platelet Volume 12.3 H Neutrophils % 78.1 H Lymphocytes % 16.0 Monocytes % 4.9 Eosinophils % 0.2 Basophils % 0.2 Nucleated Red Blood Cells % 0.0 Neutrophils # 8.5 H Lymphocytes # 1.7 Monocytes # 0.5 Eosinophils # 0.0 Basophils # 0.0 Nucleated Red Blood Cells # 0.0 Medications Medications Current Medications Nalbuphine HCl (Nubain) 2.5 mg Q4H PRN IV PRURITUS; Start 03/05/17 at 17:30 Acetaminophen/ Codeine Phosphate (Tylenol No.3) 2 tab Q4H PRN PO PAIN LEVEL 7- 10 Last administered on 03/06/17t 18:50; Admin Dose 2 TAB; Start 03/06/17 at 17: 20 Oxycodone/ Acetaminophen (Percocet (5/ 325)) 2 tab Q4H PRN PO PAIN LEVEL 7-10; Start 03/06/17 at 17:20 Ibuprofen (Motrin) 800 mg Q8 PO ; Start 03/06/17 at 22:00 Simethicone (Mylicon) 160 mg Q8H PRN PO DISTENSION/GAS/BLOATING; Start at 22:30 Sodium Biphosphate/ Sodium Phosphate (Fleet Enema) 133 ml DAILY PRN [place] CONSTIPATION; Start 03/05/17 at 22:30 Diphtheria/ Tetanus/Acell Pertussis (Adacel) 0.5 ml ONCE ONCE IM* ; Start at 09:00; Stop 03/08/17 at 09:01 Measles/Mumps/ Rubella Vaccine Live 0.5 ml 0.5 ml ONCE ONCE SC* ; Start at 09:00; Stop 03/08/17 at 09:01 Oxytocin/Lactated Ringer's 500 ml @ 0 mls/hr ONCE PRN IV For Hemorrhage Management; Start 03/05/17 at 22:30 Methylergonovine Maleate (Methergine) 0.2 mg ONCE PRN IM VAGINAL BLEEDING; Start 03/05/17 at 22:30 Carboprost Tromethamine (Hemabate) 250 mcg ONCE PRN IM VAGINAL BLEEDING; Start 03/05/17 at 22:30 Misoprostol (Cytotec) 1,000 mcg ONCE PRN [place] VAGINAL BLEEDING; Start 03/05/17 at 22:30 CATHY BURGOS MD Mar 06, 2017 19:50
[2017-03-06] MEDS: IBUPROFEN 800 MG TAB PO SCH (22:04)
[2017-03-07 03:30] VITALS: BP 138/78; PULSE 71; RESP 17
[2017-03-07] MEDS: OXYCODONE/ACETAMINOPHEN (5/325) TAB PO PRN (05:07)
[2017-03-07] MEDS: IBUPROFEN 800 MG TAB PO SCH ×3 (05:49→21:10)
[2017-03-07 08:00] VITALS: BP 140/71; PULSE 66; RESP 16
--- NOTE | 2017-03-07 08:34 | QN ---
Documentation Comment Laborist S: pt doing well. Ambulating, voiding, tenzin POs w/o difficulty. Passing flatus. Pain c/w PO meds. Pumping. Denies headache, visual change, RUQ pain, dizziness. Pumping breastmilk as baby in NICU VS T 98.4 BP 138/78 P 71 RR 17 Gen: well appearing, NAD CV: RRR, nl s1s2 Resp: CTAB Abd: soft, min distended, appropriately TTP, FF 2FB below umbilicus, NABS Inc: c/d/i with dressing in place Ext: symmetric BLE, nontender, no edema, ecchymotic areas diffusely which are non-tender Labs: Pre-op Hgb 11.3-> EBL 700ml -> POD#1 Hgb 11.2 A/P: POD#2 s/p RLTCS in the setting of cholestasis with rising LFTS. ANI also notable for elevated BPs s/p PP magnesium sulfate and GDMA1 ->Continue routine postop care, remove dressing this AM ->BPs wnl and pt asymptomatic ->Fasting FSBG ordered for tomorrow AM -> support ->Appreciate Heme consult and following for b/l LE ecchymosis RASHAUN MACIAS MD Mar 07, 2017 08:34
[2017-03-07 16:27] VITALS: BP 149/83; PULSE 65; RESP 18
[2017-03-07 19:30] VITALS: BP 122/60; PULSE 73; RESP 19
[2017-03-08 04:15] VITALS: BP 128/73; PULSE 79; RESP 18
[2017-03-08] MEDS: IBUPROFEN 800 MG TAB PO SCH ×2 (05:17→14:44)
[2017-03-08 08:00] VITALS: BP 132/69; PULSE 60; RESP 18
[2017-03-08] MEDS ORDERED: DIPHTH/TET/ACEL PERTUSS (ADULT) 0.5 ML VIAL IM* ONE (09:00)
[2017-03-08] MEDS ORDERED: MEASLES,MUMPS,RUBELLA VACCINE INJ SC* ONE (09:00)
[2017-03-08] MEDS: OXYCODONE/ACETAMINOPHEN (5/325) TAB PO PRN (12:23)
--- NOTE | 2017-03-08 14:25 | DS ---
Date/Time of Note Date/Time of Note DATE: 03/08/17 TIME: 14:23 Obstetrical Discharge Record Final Diagnosis Final Diagnosis: delivered Other Final Diagnosis repeat c/section cholestatis of Vaginal Delivery Other Delivery information pt admitted ot repeat c/sectio with ho of cholestatis and rsing LFT. on dc home pt doing well good po,s/p BM labs stable exam wnl Section Section: Repeat Complications Other Augmentation: No Induction: No Condition on Discharge Physical Assessment Voiding: Yes Bowel Movement: Yes Breast: Soft, non-tender Fundus: Firm Calf Tenderness: No Patient Condition: Stable MICHELL OVALLE MD Mar 08, 2017 14:25
[2017-03-08 15:30] VITALS: BP 125/76; PULSE 71; RESP 18
== END 2017-03-08 17:30 | disposition home or self-care (01) | DRG 765 ==
LOC: OBT 14:15 → L-D 14:16 → INTOOBSV 17:15 → OBSVTOIN 17:15 → OBT 17:15 → OBG 17:15 → L-D 03-05 16:00 → PP1 03-05 21:46
PROVIDERS: ADMIT Obstetrics & Gynecology; ATTEND Obstetrics & Gynecology
PROC: 10D00Z1 Extraction of Products of Conception, Low, Open Approach (ICD-10-PCS; principal; 2017-03-05)
PROC: 3E0234Z Introduction of Serum, Toxoid and Vaccine into Muscle, Percutaneous Approach (ICD-10-PCS; 2017-03-08)
DX: O26.62 Liver and biliary tract disorders in childbirth (principal); K83.1 Obstruction of bile duct; O99.42 Diseases of the circulatory system complicating childbirth; O13.4 Gestational [pregnancy-induced] hypertension without significant proteinuria, complicating childbirth; O24.420 Gestational diabetes mellitus in childbirth, diet controlled; R23.3 Spontaneous ecchymoses; Z23 Encounter for immunization; Z3A.34 34 weeks gestation of pregnancy; Z37.0 Single live birth
CPT/HCPCS: 36415; 76817; 76818; 80048; 80053; 80076; 81001; 81003; 82731; 82962; 83735; 84560; 85025; 85240; 85384; 85576; 85610; 85730; 86430; 86592; 86703; 86704; 86709; 86803; 86850; 86900; 86901; 87081; 87086; 87340; 88307; 90715; 99464; G0463; J0690; J0702; J1200; J1885; J2274; J2405; J2590; J2765; J3010; J3475; J7120